=== PATIENT | female | born 1975 | race Two or more races ===

== ENCOUNTER 2019-05-29 23:13 | Inpatient (IN) | payer MEDICAID, OTHER ==
[~2019-05-29] VITALS: Ht 167.6 cm; Wt 78.5 kg
[2019-05-29 23:18] VITALS: BP 136/86
[2019-05-29] MEDS ORDERED: NACL 0.9% 1,000 ML IV ONE (23:20)
[2019-05-29 23:42] LABS: BASOPHILS # (AUTO) 0.1 K/uL (0.00-0.22); BASOPHILS % (AUTO) 0.6 % (0.0-2.0); EOSINOPHILS # (AUTO) 0.1 K/uL (0-0.4); EOSINOPHILS % (AUTO) 0.7 % (0.0-4.0); HEMATOCRIT 42.1 % (36-48); HEMOGLOBIN 14.1 g/dL (12.0-16.0); LYMPHOCYTES % (AUTO) 26.7 % (20.5-51.1); MEAN CORPUSCULAR HEMOGLOBIN 32 pg (27-31); MEAN CORPUSCULAR HGB CONC 34 g/dL (33-37); MEAN CORPUSCULAR VOLUME 95.8 fL (80-94); MONOCYTES # (AUTO) 0.8 K/uL (0.8-1.0); MONOCYTES % (AUTO) 5.5 % (1.7-9.3); NEUTROPHILS % (AUTO) 66.5 % (42.2-75.2); PLATELET COUNT (AUTO) 373 K/uL (140-450); RED CELL DISTRIBUTION WIDTH 15.5 % (11.6-13.7)
[2019-05-29 23:48] LABS: BARBITURATE, URINE NEG. ng/ml (NEG <=200); BENZODIAZEPINE, URINE NEG. ng/mL (NEG <=200); CANNABINOID, URINE NEG. ng/mL (NEG <=50); COCAINE, URINE NEG. ng/mL (NEG <=300); OPIATE, URINE NEG. ng/mL (NEG <=2000); PHENCYCLIDINE SCREEN,URINE NEG. ng/mL (NEG <=25)
[2019-05-29 23:51] LABS: CARBON DIOXIDE 22.7 mmol/L (21-32); CHLORIDE 105 mmol/L (98-107); CREATININE 0.5 mg/dL (0.6-1.3); GFR ARICAN-AMERICAN 172 mL/min (>90); GLUCOSE 117 mg/dL (74-106); POTASSIUM 3.7 mmol/L (3.5-5.1); SODIUM SERUM 141 mmol/L (136-145); UREA NITROGEN, BLOOD 16 mg/dL (7-18)
[2019-05-29 23:57] LABS: ACETAMINOPHEN < 0.5 ug/ml (10-30); ALBUMIN 3.6 g/dL (3.4-5.0); ASPARTATE AMINOTRANSFERASE 33 U/L (15-37); SALICYLATE < 2.8 mg/dL (2.8-20.0); TOTAL BILIRUBIN 0.4 mg/dL (0.0-1.0)
[2019-05-30] MEDS ORDERED: LORazepam 2 MG/ML VIAL IVP ONE (00:15)
[2019-05-30] MEDS ORDERED: KETOROLAC 30 MG/ML VIAL IVP ONE (04:55)
[2019-05-30] MEDS ORDERED: ALUMINUM HYD/MAG/SIMETHICONE 30 ML UDC PO ONE (07:30)
[2019-05-30] MEDS ORDERED: LORazepam 1 MG TAB PO ONE (07:30)
[2019-05-30] MEDS ORDERED: HYDR-3293 PO (07:43)
[2019-05-30] MEDS ORDERED: HYDR25CA32 PO ×2 (07:43→10:24)
[2019-05-30] MEDS ORDERED: DULO30EC PO ×2 (07:43→10:24)
[2019-05-30] MEDS ORDERED: NACL 0.9% 1,000 ML IV SCH (08:34)
[2019-05-30] MEDS ORDERED: ONDANSETRON 4 MG/2 ML VIAL IM/IVP PRN (08:35)
[2019-05-30] MEDS ORDERED: HYDROcodone/APAP 5/325 MG 1 TAB TAB PO PRN (08:35)
[2019-05-30] MEDS ORDERED: hydrOXYzine PAMOATE 25 MG CAP PO PRN (10:25)
[2019-05-30] MEDS ORDERED: HYDROCHLOROTHIAZIDE 25 MG TAB PO SCH (11:15)
[2019-05-30] MEDS ORDERED: LORazepam 2 MG/ML VIAL IM/IVP PRN (11:30)
[2019-05-30] MEDS ORDERED: MULTIVITAMIN-12 10 ML, THIAMINE 100 MG, MAGNESIUM SULFATE 50% 2,000 MG, FOLIC ACID 1 MG... IV SCH ×5 (11:30)
[2019-05-30] MEDS: chlordiazePOXIDE 25 MG CAP PO SCH ×2 (12:25→16:54)
[2019-05-30 12:49] LABS: MAGNESIUM 1.5 mg/dL (1.8-2.4); THYROID STIMULATING HORMONE 1.15 uIU/mL (0.34-3.74)
[2019-05-30 12:50] VITALS: BP 150/94
[2019-05-30] MEDS ORDERED: LORazepam 1 MG TAB PO SCH (13:00)
[2019-05-30] MEDS ORDERED: MAG SULF 2000 MG/WATER PREMIX 50 ML IV SCH (14:00)
[2019-05-30] MEDS: LORazepam 1 MG TAB PO PRN (15:38)
[2019-05-30 16:50] VITALS: BP 140/79
[2019-05-30 18:06] LABS: APPEARANCE,URINE CLEAR (CLEAR); BILIRUBIN,URINE NEGATIVE (NEGATIVE); BLOOD, URINE NEGATIVE (NEGATIVE); COLOR,URINE OTHER (YELLOW); LEUKOCYTE ESTERASE ,URINE NEGATIVE (NEGATIVE); NITRITE, URINE NEGATIVE (NEGATIVE); UGLUCOSE NEGATIVE (NEGATIVE)
[2019-05-30 20:20] VITALS: BP 142/90
[2019-05-30] MEDS ORDERED: MAG SULF 2000 MG/WATER PREMIX 50 ML IV ONE (21:10)
[2019-05-30] MEDS: MORPHINE SULFATE 2 MG/ML SYR IVP PRN (21:27)
[2019-05-30] MEDS: DULoxetine 30 MG CAPDR PO SCH (21:27)
[2019-05-30] MEDS: NACL 0.9% 1,000 ML IV SCH (23:04)
[2019-05-31] MEDS: LORazepam 1 MG TAB PO PRN ×2 (00:56→11:47)
[2019-05-31 04:30] VITALS: BP 128/87
[2019-05-31 07:02] LABS: CHOL/HDL RATIO 3.7 (1-4.5)
[2019-05-31 08:19] LABS: T4 (THYROXINE) 5.5 ug/dL (4.5-12.0)
[2019-05-31] MEDS: chlordiazePOXIDE 25 MG CAP PO SCH ×2 (08:23→14:04)
[2019-05-31] MEDS: DULoxetine 30 MG CAPDR PO SCH (08:24)
[2019-05-31] MEDS: MORPHINE SULFATE 2 MG/ML SYR IVP PRN ×2 (08:29→14:09)
[2019-05-31] MEDS ORDERED: NON-FORMULARY ITEM (Losartan/Hydrochlorothiazide (Losartan-Hctz 50-12.5 mg Tab) 1 TAB) PO SCH (09:00)
[2019-05-31] MEDS ORDERED: LOSARTAN 50 MG TAB PO SCH (09:00)
[2019-05-31] MEDS ORDERED: HYDROCHLOROTHIAZIDE 25 MG TAB PO SCH ×2 (09:00)
[2019-05-31] MEDS ORDERED: FOLIC ACID 1 MG TAB PO SCH (09:00)
[2019-05-31] MEDS ORDERED: THIAMINE 100 MG TAB PO SCH (09:00)
[2019-05-31] MEDS ORDERED: MULTIVITAMIN 1 TAB PO SCH (09:00)
[2019-05-31 10:07] LABS: BASOPHILS % (AUTO) 0.3 % (0.0-2.0); EOSINOPHILS # (AUTO) 0.2 K/uL (0-0.4); EOSINOPHILS % (AUTO) 3.1 % (0.0-4.0); HEMATOCRIT 38.2 % (36-48); HEMOGLOBIN 12.7 g/dL (12.0-16.0); LYMPHOCYTES # (AUTO) 2.7 K/uL (2.5-16.5); MEAN CORPUSCULAR HEMOGLOBIN 32 pg (27-31); MEAN CORPUSCULAR HGB CONC 33 g/dL (33-37); MEAN CORPUSCULAR VOLUME 97.2 fL (80-94); MONOCYTES # (AUTO) 0.7 K/uL (0.8-1.0); MONOCYTES % (AUTO) 9.5 % (1.7-9.3); NEUTROPHILS # (AUTO) 3.5 K/uL (1.8-7.7); NEUTROPHILS % (AUTO) 49.1 % (42.2-75.2); PLATELET COUNT (AUTO) 272 K/uL (140-450); RED BLOOD CELL COUNT(AUTO) 3.93 MIL/uL (4.20-5.40); RED CELL DISTRIBUTION WIDTH 15.1 % (11.6-13.7)
[2019-05-31 10:24] LABS: ALBUMIN 3.3 g/dL (3.4-5.0); ANION GAP 14.5 (8-16); CARBON DIOXIDE 25.4 mmol/L (21-32); CREATININE 0.5 mg/dL (0.6-1.3); MAGNESIUM 1.9 mg/dL (1.8-2.4); PHOSPHORUS 3.5 mg/dL (2.5-4.9); POTASSIUM 3.9 mmol/L (3.5-5.1); TOTAL BILIRUBIN 0.8 mg/dL (0.0-1.0)
[2019-05-31] MEDS ORDERED: busPIRone 5 MG TAB PO SCH (13:00)
[2019-05-31] MEDS: NACL 0.9% 1,000 ML IV SCH (14:40)
[2019-05-31] MEDS ORDERED: BUS5 PO (15:48)
[2019-05-31 16:44] VITALS: BP 128/87
== END 2019-05-31 17:30 | DRG 425 ==
LOC: MED 23:13 → MTU 05-30 08:40
PROVIDERS: ADMIT General Practice; ATTEND General Practice
DX: E83.42 Hypomagnesemia (principal); R45.851 Suicidal ideations; F10.129 Alcohol abuse with intoxication, unspecified; D72.829 Elevated white blood cell count, unspecified; F32.9 Major depressive disorder, single episode, unspecified; Y90.7 Blood alcohol level of 200-239 mg/100 ml; F41.9 Anxiety disorder, unspecified; I10 Essential (primary) hypertension; E83.51 Hypocalcemia; Z59.0 Homelessness
CPT/HCPCS: 36415; 71045; 80053; 80305; 81003; 82150; 83036; 83690; 83735; 84100; 84436; 84443; 85025; 85610; 85730; 87070; 87081; 93005; 96361; 96374; 96375; 99285; A9153; G0480; G0482; J1885; J2060; J2270; J3411; J3475; J3490; J7030; Q0092

== ENCOUNTER 2019-07-15 20:02 | Inpatient (IN) | payer MEDICAID ==
[~2019-07-15] VITALS: Ht 167.6 cm; Wt 79.4 kg
[~2019-07-15 20:02] MED LIST: BUS5 PO; DULO30EC PO; HYDR-3293 PO
[2019-07-15] MEDS ORDERED: KETOROLAC 60 MG/2 ML VIAL IM ONE (21:22)
[2019-07-15] MEDS ORDERED: OLANZapine 5 MG ODT ONE (22:05)
[2019-07-15] MEDS ORDERED: LORazepam 2 MG/ML VIAL ONE (22:06)
[2019-07-16] MEDS ORDERED: FOLIC ACID 1 MG TAB ONE (02:06)
[2019-07-16] MEDS ORDERED: THIAMINE 200 MG/2 ML VIAL ONE (02:08)
[2019-07-16] MEDS ORDERED: MULTIVITAMIN-12 10 ML VIAL IV ONE (02:21)
[2019-07-16] MEDS ORDERED: KCL 20 MEQ/WATER INJ PREMIX 200 ML IV ONE (02:23)
[2019-07-16] MEDS ORDERED: MAGNESIUM OXIDE 400 MG TAB ONE (11:42)
[2019-07-16] MEDS ORDERED: LORazepam 2 MG/ML VIAL ONE ×2 (14:52→22:11)
[2019-07-16] MEDS ORDERED: FAMOTIDINE 20 MG TAB ONE ×2 (14:53→22:49)
[2019-07-16] MEDS ORDERED: OLANZapine 2.5 MG TAB ONE (22:50)
[2019-07-16] MEDS ORDERED: LACTULOSE 20 GM/30 ML UDC ONE (22:51)
[2019-07-16] MEDS ORDERED: HYDROcodone/APAP 5/325 MG 1 TAB TAB ONE (22:51)
[2019-07-17] MEDS: NACL 0.9% 1,000 ML IV SCH ×2 (05:30→10:00)
[2019-07-17] MEDS ORDERED: HYDROcodone/APAP 5/325 MG 1 TAB TAB ONE (06:58)
--- NOTE | 2019-07-17 07:30 | NUR ---
Received report from night baker nurse. Pt is in bed in stable condition. Call light in reach.
[2019-07-17 08:09] LABS: BASOPHILS % (AUTO) 0.7 % (0.0-2.0); EOSINOPHILS # (AUTO) 0.2 K/uL (0-0.4); EOSINOPHILS % (AUTO) 2.8 % (0.0-4.0); HEMATOCRIT 32.8 % (36-48); LYMPHOCYTES # (AUTO) 2.5 K/uL (2.5-16.5); LYMPHOCYTES % (AUTO) 40.8 % (20.5-51.1); MEAN CORPUSCULAR HEMOGLOBIN 32 pg (27-31); MEAN CORPUSCULAR HGB CONC 34 g/dL (33-37); MEAN CORPUSCULAR VOLUME 93.3 fL (80-94); MONOCYTES # (AUTO) 0.5 K/uL (0.8-1.0); MONOCYTES % (AUTO) 7.4 % (1.7-9.3); NEUTROPHILS % (AUTO) 48.3 % (42.2-75.2); PLATELET COUNT (AUTO) 282 K/uL (140-450); RED BLOOD CELL COUNT(AUTO) 3.51 MIL/uL (4.20-5.40); RED CELL DISTRIBUTION WIDTH 14.9 % (11.6-13.7); WHITE BLOOD COUNT (AUTO) 6.2 K/uL (4.8-10.8)
[2019-07-17 08:55] LABS: ALBUMIN 2.8 g/dL (3.4-5.0); ANION GAP 12.9 (8-16); CARBON DIOXIDE 23.6 mmol/L (21-32); CREATININE 0.6 mg/dL (0.6-1.3); MAGNESIUM 1.7 mg/dL (1.8-2.4); PHOSPHORUS 2.6 mg/dL (2.5-4.9); POTASSIUM 3.5 mmol/L (3.5-5.1); TOTAL BILIRUBIN 0.5 mg/dL (0.0-1.0)
[2019-07-17] MEDS ORDERED: busPIRone 5 MG TAB PO SCH ×2 (10:00→21:00)
[2019-07-17] MEDS ORDERED: HYDROCHLOROTHIAZIDE 25 MG TAB PO SCH (10:06)
[2019-07-17] MEDS ORDERED: LOSARTAN 50 MG TAB PO SCH (10:07)
--- NOTE | 2019-07-17 10:24 | NUR ---
Pt's medication hydrochlorothiazide 12.5 mg and Losartan Potassium 50 mg was given. Unable to scan with scanner and manual entry is not working.
--- NOTE | 2019-07-17 13:00 | NUR ---
Pt said that she wants to kill herself. Pt was crying. Pt was resting in bed at this time. Sitter by bedside.
[2019-07-17] MEDS: HYDROcodone/APAP 5/325 MG 1 TAB TAB PO PRN (14:22)
[2019-07-17] MEDS ORDERED: LOPERAMIDE 2 MG CAP PO SCH (14:45)
--- NOTE | 2019-07-17 15:00 | NUR ---
Pt is resting in bed in stable condition. Call light in reach.
[2019-07-17] MEDS: busPIRone 5 MG TAB PO SCH ×2 (15:04→16:28)
[2019-07-17 16:00] VITALS: BP 130/87
[2019-07-17 17:07] LABS: APPEARANCE,URINE CLEAR (CLEAR); BILIRUBIN,URINE NEGATIVE (NEGATIVE); BLOOD, URINE NEGATIVE (NEGATIVE); COLOR,URINE YELLOW (YELLOW); LEUKOCYTE ESTERASE ,URINE NEGATIVE (NEGATIVE); NITRITE, URINE NEGATIVE (NEGATIVE); UGLUCOSE NEGATIVE (NEGATIVE)
[2019-07-17 17:08] LABS: ANION GAP 16.2 (8-16); CARBON DIOXIDE 25.1 mmol/L (21-32); CREATININE 0.6 mg/dL (0.6-1.3); POTASSIUM 3.3 mmol/L (3.5-5.1)
[2019-07-17 17:09] LABS: ALBUMIN 4.4 g/dL (3.4-5.0); TOTAL BILIRUBIN 0.3 mg/dL (0.0-1.0)
[2019-07-17 17:10] LABS: BARBITURATE, URINE NEGATIVE ng/ml (NEG <=200); BENZODIAZEPINE, URINE POSITIVE ng/mL (NEG <=200); COCAINE, URINE NEGATIVE ng/mL (NEG <=300)
[2019-07-17 17:11] LABS: CANNABINOID, URINE POSITIVE ng/mL (NEG <=50); OPIATE, URINE NEGATIVE ng/mL (NEG <=2000); PHENCYCLIDINE SCREEN,URINE NEGATIVE ng/mL (NEG <=25)
--- NOTE | 2019-07-17 17:30 | NUR ---
Pt is resting in bed in stable condition. Call light in reach.
--- NOTE | 2019-07-17 19:30 | NUR ---
Shift report given to night nurse.Pt is resting in bed in stable condition. Call light in reach.
--- NOTE | 2019-07-17 19:31 | NUR ---
RECEIVED PT IN STABLE CONDITION FROM AM NURSE, MED SURG PT. ON 5150 HOLD. 1:1 SITTER IN ATTENDANCE. AMBULATORY. WITH IV FLUIDS JUST RESTARTED ON A NEW IV ACCESS LT AC g20. CLEAR AND PATENT. NO C/O ANY DISCOMFORT NOR PAIN NOTED AT THIS TIME. BED ON LOW POSITION. WILL CONTINUE TO MONITOR.
[2019-07-17] MEDS: LACTULOSE 20 GM/30 ML UDC PO SCH (20:43)
[2019-07-17] MEDS: DULoxetine 30 MG CAPDR PO SCH (20:44)
[2019-07-17] MEDS: FAMOTIDINE 20 MG TAB PO SCH (20:45)
[2019-07-17] MEDS: OLANZapine 5 MG TAB PO SCH (20:45)
[2019-07-17 21:21] LABS: PHOSPHORUS 3.1 mg/dL (2.5-4.9)
--- NOTE | 2019-07-17 21:30 | NUR ---
PT AMBUTATORY. B HAS BEEN TO BATHROOM. NO /CO ANY PAIN NOTED.
--- NOTE | 2019-07-17 23:00 | NUR ---
ASLEEP. NO S/S OF ANY DISCOMFORT NOTED.
[2019-07-18 00:16] VITALS: BP 122/80
--- NOTE | 2019-07-18 00:30 | NUR ---
ENDORSED PT TO STEVEN VELÁZQUEZ CHARGE FOR CONTINUITY OF CARE. PT IN STABLE CONDITION.WITH 1;1 SITTER FOR 5150 /SI .
--- NOTE | 2019-07-18 00:40 | NUR ---
RECEIVED REPORT FROM BILLY HARRIS.PT CONDITION IS STABLE.
[2019-07-18] MEDS: HYDROcodone/APAP 5/325 MG 1 TAB TAB PO PRN ×2 (05:21→20:15)
[2019-07-18] MEDS ORDERED: LORazepam 1 MG TAB PO PRN ×3 (05:30→07:25)
[2019-07-18 07:50] LABS: BASOPHILS # (AUTO) 0.4 K/uL (0.00-0.22); BASOPHILS % (AUTO) 4.6 % (0.0-2.0); EOSINOPHILS # (AUTO) 0.3 K/uL (0-0.4); EOSINOPHILS % (AUTO) 4.2 % (0.0-4.0); HEMATOCRIT 37.1 % (36-48); HEMOGLOBIN 12.2 g/dL (12.0-16.0); LYMPHOCYTES # (AUTO) 2.3 K/uL (2.5-16.5); MEAN CORPUSCULAR HEMOGLOBIN 31 pg (27-31); MEAN CORPUSCULAR HGB CONC 33 g/dL (33-37); MEAN CORPUSCULAR VOLUME 93.5 fL (80-94); MONOCYTES # (AUTO) 0.6 K/uL (0.8-1.0); NEUTROPHILS # (AUTO) 4.5 K/uL (1.8-7.7); NEUTROPHILS % (AUTO) 56.2 % (42.2-75.2); PLATELET COUNT (AUTO) 360 K/uL (140-450); RED BLOOD CELL COUNT(AUTO) 3.97 MIL/uL (4.20-5.40); RED CELL DISTRIBUTION WIDTH 15.3 % (11.6-13.7)
--- NOTE | 2019-07-18 07:52 | NUR ---
HAD C/O GENERALIZED PAIN.NORCO PO GIVEN EARLIER.PT ASKED FOR ATIVAN EXPLAINED FOR HER THAT HAS NO ORDER.SHE SAID SHE REALLY NEED IT.PROMISE HER TO TALK W/RESIDENT BUT I WILL NOT GIVE IT W/NORCO TOGETHER MAY BE AFTER 2 HRS.SHE ACCEPTED.ASKED RESIDENT HE ORDERED. BUT PT SLEPT AND DIDN'T ASK FOR ATIVAN.
--- NOTE | 2019-07-18 07:56 | NUR ---
REPORT GIVEN TO AM RN IN STABLE CONDITION.
--- NOTE | 2019-07-18 07:59 | NUR ---
RECEIVED PT FROM MANAGER SQL CHARGE NURSEMARIELY, PT IS SLEEPING ON THE BED WITH, RESPIRATION IS EVEN, 1:1 SITTER ON THE BEDSIDE, ROOM CHECKED FOR ANY HAZARDOUS OBJECTS, PT HAS AN IV LINE ON THE LEFT AC G. 20 WITH NS INFUSING AT 100ML/HR, NO SIGN OF DISTRESS NOTED AND WILL MONITOR PT.
[2019-07-18 08:00] VITALS: BP 136/91
[2019-07-18 08:11] LABS: ANION GAP 15.8 (8-16); CARBON DIOXIDE 22.9 mmol/L (21-32); POTASSIUM 3.7 mmol/L (3.5-5.1)
[2019-07-18 08:17] LABS: MAGNESIUM 1.8 mg/dL (1.8-2.4); PHOSPHORUS 3.4 mg/dL (2.5-4.9)
[2019-07-18 08:31] LABS: CREATININE 0.6 mg/dL (0.6-1.3)
[2019-07-18] MEDS: NACL 0.9% 1,000 ML IV SCH ×2 (08:44→16:25)
[2019-07-18] MEDS: LACTULOSE 20 GM/30 ML UDC PO SCH ×2 (09:13→20:14)
[2019-07-18] MEDS: LOSARTAN 50 MG TAB PO SCH (09:14)
[2019-07-18] MEDS: chlordiazePOXIDE 25 MG CAP PO SCH ×3 (09:15→17:42)
[2019-07-18] MEDS: DULoxetine 30 MG CAPDR PO SCH ×2 (09:15→20:15)
[2019-07-18] MEDS: FAMOTIDINE 20 MG TAB PO SCH ×2 (09:15→20:15)
--- NOTE | 2019-07-18 09:15 | NUR ---
PT IS AWAKE AND SEATED ON THE BED, 1; SITTER ON THE BEDSIDE, BP IS 136/91, PULSE IS 103, ORAL MEDICATIONS WERE GIVEN AND TOLERATED IT, WILL MONITOR PT.
[2019-07-18] MEDS: HYDROCHLOROTHIAZIDE 25 MG TAB PO SCH (09:16)
--- NOTE | 2019-07-18 11:40 | NUR ---
PT IS EATING HER LUNCH, DAUGHTER AND 1:1 SITTER ON THE BEDSIDE.
[2019-07-18] MEDS: LORazepam 1 MG TAB PO SCH ×2 (13:00→20:16)
--- NOTE | 2019-07-18 13:00 | NUR ---
PT WAS GIVEN SCHEDULED ORAL MEDICATIONS NOW, BP KIS 133/86, PULSE IS 97, O2 SATURATION IS 98%, DAUGHTER AND 1: SITTER ON THE BEDSIDE, WILL MONITOR PT.
[2019-07-18 16:00] VITALS: BP 132/98
--- NOTE | 2019-07-18 17:44 | NUR ---
PATIENT SITTING IN BED COMFORTABLY. NO DISTRESS NOTED. SCHEDULED MEDICATIONS DUE GIVEN. WILL CONTINUE TO MONITOR.
[2019-07-18 19:07] LABS: ANION GAP 13.7 (8-16); CREATININE 0.7 mg/dL (0.6-1.3); POTASSIUM 3.7 mmol/L (3.5-5.1); TRIGLYCERIDES 274 mg/dL (30-150)
[2019-07-18 19:08] LABS: AMYLASE 71 U/L (25-115); CHOL/HDL RATIO 2.3 (1-4.5); HDL CHOLESTEROL 55 mg/dL (40-60); LDL (CALC) 18 mg/dL (60-100); LIPASE 143 U/L (73-393); THYROID STIMULATING HORMONE 2.48 uIU/mL (0.34-3.74)
--- NOTE | 2019-07-18 19:35 | NUR ---
ENDORSED PT TO POOLROOM/POOLHALL MANAGER NURSE FOR CONTINUITY OF CARE.
--- NOTE | 2019-07-18 19:36 | NUR ---
RECD. AMBULATING FROM THE BR. AWAKE, A/OX4. RESPIRATION EVEN AND UNLABORED. IV OF NS AT 100 ML/HR INFUSING, LEFT AC G 20. WHEN INQUIRED IF SHE HAS THOUGHTS OF HURTING SELF STATED NO. PLAN OF CARE FOR THE SHIFT DISCUSSED. VERBALIZED UNDERSTANDING. 1:1 SITTER MONITORING PATIENT NEAR DOOR. DENIES PAIN 0. Addendum: 07/18/19 at 2031 by Cassie Pulido LVN CORRECTION: THIS CHARTING IS NOT FOR THIS PATIENT. Addendum: 07/18/19 at 2033 by Cassie Pulido LVN CORRECTION: THIS CHARTING IS FOR THIS PATIENT. Addendum: 07/18/19 at 2034 by Cassie Pulido LVN CORRECTION: MADE ADDENDUM IN ERROR. THIS CHARTING IS FOR THIS PATIENT.
[2019-07-18] MEDS: OLANZapine 5 MG TAB PO SCH (21:00)
--- NOTE | 2019-07-18 21:00 | NUR ---
Patient's Plan of Care was discussed and reviewed with PUSH BUTTON SWITCH ASSEMBLER: ROBINA ACEVEDO
--- NOTE | 2019-07-18 21:35 | NUR ---
INFORMED DR. HAIR PATIENT IS CRAVING TO SMOKE, WILL ORDER NICOTINE PATCH.
[2019-07-18] MEDS ORDERED: NICOTINE TRANSD SYS 14 MG/24 HR PATCH TD SCH (23:00)
--- NOTE | 2019-07-19 | NUR ---
UNABLE TO SCAN MEDICATION, [id number] SAYS MISSING OE ORDER BUTTON, CALLED PHARMACY, WILL PUT IT AGAIN. STILL UNABLE TO SCAN, NICOTINE PATCH PUT ON LEFT UPPER ARM OF PATIENT.
[2019-07-19 00:46] VITALS: BP 129/83
[2019-07-19] MEDS ORDERED: NICOTINE TRANSD SYS 14 MG/24 HR PATCH TD SCH ×2 (01:00→09:00)
[2019-07-19] MEDS: NACL 0.9% 1,000 ML IV SCH ×2 (02:00→12:00)
--- NOTE | 2019-07-19 04:00 | NUR ---
SLEEPING COMFORTABLY IN BED.
[2019-07-19] MEDS: LORazepam 1 MG TAB PO SCH ×2 (05:00→13:41)
--- NOTE | 2019-07-19 05:19 | NUR ---
At this time there are no vacancy at the following facilities [facility]- Naty Quan [facility]- [facility] Cheung [place]- Robbie will endorsed top AM shift to continue to look for beds, Trung charge nurse made aware.
--- NOTE | 2019-07-19 07:25 | NUR ---
CONDITION REMAIN STABLE. SAFETY MAINTAINED DURING SHIFT. ENDORSED TO AM SHIFT NURSE FOR CONTINUITY OF CARE.
[2019-07-19 07:26] LABS: ANION GAP 13.9 (8-16); CREATININE 0.5 mg/dL (0.6-1.3); POTASSIUM 3.9 mmol/L (3.5-5.1)
--- NOTE | 2019-07-19 07:27 | NUR ---
RECEIVED BEDSIDE REPORT FROM CURING PRESS MAINTAINER NURSE FOR CONTINUITY OF CARE. PATIENT IS ASLEEP ON BED. AROUSABLE TO VOICE. FLACC 0. RESPIRATION EVEN AND UNLABORED ON RA. NO SIGNS OF DISTRESS NOTED. IV CLEAN AND INTACT, INFUSING PER MD ORDER. SKIN CLEAN AND DRY. SAFETY MEASURES IN PLACE. BED IN LOW POSITION AND1:1 SITTER BY BEDSIDE.
[2019-07-19 07:33] LABS: MAGNESIUM 1.8 mg/dL (1.8-2.4); PHOSPHORUS 4.1 mg/dL (2.5-4.9)
[2019-07-19 07:59] LABS: BASOPHILS # (AUTO) 0.1 K/uL (0.00-0.22); BASOPHILS % (AUTO) 0.9 % (0.0-2.0); EOSINOPHILS # (AUTO) 0.2 K/uL (0-0.4); HEMATOCRIT 33.9 % (36-48); HEMOGLOBIN 11.2 g/dL (12.0-16.0); LYMPHOCYTES # (AUTO) 2.1 K/uL (2.5-16.5); LYMPHOCYTES % (AUTO) 32.4 % (20.5-51.1); MEAN CORPUSCULAR HEMOGLOBIN 31 pg (27-31); MEAN CORPUSCULAR HGB CONC 33 g/dL (33-37); MONOCYTES # (AUTO) 0.5 K/uL (0.8-1.0); MONOCYTES % (AUTO) 7.7 % (1.7-9.3); NEUTROPHILS # (AUTO) 3.6 K/uL (1.8-7.7); PLATELET COUNT (AUTO) 292 K/uL (140-450); RED BLOOD CELL COUNT(AUTO) 3.61 MIL/uL (4.20-5.40); RED CELL DISTRIBUTION WIDTH 15.2 % (11.6-13.7); WHITE BLOOD COUNT (AUTO) 6.5 K/uL (4.8-10.8)
[2019-07-19 08:00] VITALS: BP 120/80
--- NOTE | 2019-07-19 08:32 | NUR ---
Received report from PM shift. Will follow up with surrounding Psych facilities to locate appropriate placement.
[2019-07-19] MEDS: FAMOTIDINE 20 MG TAB PO SCH (09:16)
[2019-07-19] MEDS: LACTULOSE 20 GM/30 ML UDC PO SCH (09:16)
[2019-07-19] MEDS: DULoxetine 30 MG CAPDR PO SCH (09:16)
[2019-07-19] MEDS: HYDROCHLOROTHIAZIDE 25 MG TAB PO SCH (09:16)
[2019-07-19] MEDS: LOSARTAN 50 MG TAB PO SCH (09:17)
[2019-07-19] MEDS: chlordiazePOXIDE 25 MG CAP PO SCH ×3 (09:17→17:43)
--- NOTE | 2019-07-19 09:20 | NUR ---
ADMINISTERED MEDS PER MD ORDER, MEDS ED PROVIDED TO PATIENT AND PATIENT VERBALIZED UNDERSTANDING. PATIENT IS AAOX4. PATIENT DENIED HEARING VOICE, HALLUCINATION, AND ANY SUICIDAL IDEATION. NO SIGNS OF DISTRESS NOTED. PATIENT IS RESTING ON BED AT THIS TIME. NO SIGNS OF DISTRESS NOTED. SAFETY MEASURES IN PLACE. BED IN LOW POSITION AND 1:1 SITTER BY BEDSIDE.
--- NOTE | 2019-07-19 09:43 | NUR ---
DC PLANNING: RECEIVED A CALL FROM ANTONI CONCRETE SPREADER AT [facility] ,PT IS ACCEPTED AND CAN GO TO UN[address] 220-1 # TO GIVE REPORT [phone] Annie MADDOX CALLED [facility] [phone] SPOKE WITH WHIT MANZO FOR AUTH FOR TRANSPORT . PER WHIT WILL CALL BACK FOR KAMILLA MANZO TO FOLLOW. Addendum: 07/19/19 at 1013 by Gilda Scott CM DC PLANNING: STILL WAITING FOR AUTHORIZATION , PLACED THE TRANSPORT WILL CALL WITH [facility] MAN[facility] TO FOLLOW Addendum: 07/19/19 at 1628 by Gilda Scott CM DC PLANNING UN ABLE TO GET AUTHORIZATION FROM [facility] STILL WAITING FROM [facility] (WHIT) PER MAGO (ORDER ADMINISTRATOR) ARRANGED TRANSPORT WITH [facility] ,INVESTMENT BANKING MANAGER TIME WITH IN ONE HR . NOTIFIED EDIN HARRIS .
[2019-07-19] MEDS ORDERED: OLAN5TAB30 PO (10:12)
[2019-07-19] MEDS ORDERED: LIB5 PO (10:12)
[2019-07-19] MEDS ORDERED: NICO14TD30 TD (10:12)
--- NOTE | 2019-07-19 10:15 | NUR ---
PATIENT REFUSED TO BE TRANSFER AND INSISTED TO LEAVE THE UNIT. EXPLAINED TO PT THAT SHE IS STILL ON HOLD AND RENEWED THE HOLD ON 07/18/19. PAPER CUTTING MACHINE OPERATOR SPOKE TO PATIENT AND PATIENT AGREED TO BE TRANSFER.
--- NOTE | 2019-07-19 10:26 | NUR ---
NOTIFIED PT'S SMART ERIKA THAT PATIENT IS GOING TO TRANSFER TO PSY FACILITY. PROVIDED THE ADDRESS, NAME AND PHONE # FOR THE FACILITY PT IS GOING TO TRANSFER. ERIKA WAS AWARE AND ACKNOWLEDGED THE TRANSFER.
--- NOTE | 2019-07-19 10:31 | NUR ---
CALLED [facility] [phone] AND FULL REPORT GAVE TO KANG VERNON, ANSWERED ALL KANG Tineo'S QUESTIONS AND PROVIDED A CALL BACK # FOR FURTHER QUESTIONS.
--- NOTE | 2019-07-19 11:40 | NUR ---
PATIENT IS RESTING ON BED AT THIS TIME. NO SIGNS OF DISTRESS NOTE. SAFETY MEASURES IN PLACE. AWAITING FOR TRANSPORTATION TO ARRIVE TO TRANSFER.
--- NOTE | 2019-07-19 13:41 | NUR ---
ADMINISTERED SCHEDULED MEDS PER MD ORDER, PATIENT IS SITTING UP ON BED. DENIED SUICIDAL IDEATION AND HEARING VOICES. NO SIGNS OF DISTRESS NOTE. SAFETY MEASURES IN PLACE/
--- NOTE | 2019-07-19 14:07 | NUR ---
Called JOVANY Ponce at [facility]. She told me that [facility] is delegated for this stay. I gave her a verbal update. Requested remote team to fax over the clinicals at [phone].
--- NOTE | 2019-07-19 15:15 | NUR ---
PT PULLED OUT HER IV AND SAYING "I DONT NEED IT. I AM TRANSFER SOON." ASSESSED CANNULA INTACT AND NO BLEEDING AT IV SITE. ED PROVIDED TO PATIENT AND PT REFUSED IV ACCESS. PATIENT IS SITTING UP ON BED. DENIED SUICIDAL IDEATION AND HEARING VOICES. NO SIGNS OF DISTRESS NOTE. SAFETY MEASURES IN PLACE AND 1:1 SITTER BY BEDSIDE.
[2019-07-19 16:00] VITALS: BP 123/54
--- NOTE | 2019-07-19 17:15 | NUR ---
Public Service Representative Note: Late entry for 07/18/19: I faxed referral to [facility]. I called and spoke with Jose Antonio from [facility], I was able to confirmed he received referral.
--- NOTE | 2019-07-19 17:43 | NUR ---
ADMINISTERED SCHEDULED MEDS PER MD ORDER, PATIENT IS SITTING UP ON BED. DENIED SUICIDAL IDEATION AND HEARING VOICES. NO SIGNS OF DISTRESS NOTE. SAFETY MEASURES IN PLACE AND 1:1 SITTER BY BEDSIDE.
--- NOTE | 2019-07-19 17:54 | NUR ---
CALLED [facility] [phone] TO FOLLOW UP SCREEN PRINTING EQUIPMENT SETTER. SPOKE WITH [employer]. PER [employer], THEY NEED THE AUTHORIZATION # FOR SCREEN PRINTING EQUIPMENT SETTER. CHECKED NOTED FROM CM, AND NO # FOUND. NOTIFIED AGRICULTURAL ENGINEER AND WILL WORK ON IT. INFORMED [employer] THAT WE WILL CALL BACK TO FOLLOW UP.
--- NOTE | 2019-07-19 18:30 | NUR ---
PT IS EATING DINNER AT THIS TIME. NO SIGNS OF DISTRESS NOTED. SAFETY MEASURES IN PLACE.
--- NOTE | 2019-07-19 18:50 | NUR ---
DISCHARGE INSTRUCTION PROVIDED TO PT AT BEDSIDE. EDUCATED PATIENT ON SEEK MEDICAL HELP IN PSYCHIATRIC CRISIS, MEDICATIONS REGIMEN, SIDE EFFECTS, AND ALCOHOL CESSATION. PATIENT VERBALIZED OK. REMOVED ALL ARM BANDS. PATIENT CHANGED INTO HER OWN CLOTHES. PATIENT TOOK ALL HER BELONGINGS WITH HER. PT REFUSED VACCINES AND ED PROVIDED. PATIENT IS GOING TO TRANSFER AT THIS TIME. PATIENT IS IN STABLE CONDITION.
[2019-07-22 15:05] LABS: HEMATOCRIT 32.1 % (36-48); HEMOGLOBIN 10.6 g/dL (12.0-16.0); LYMPHOCYTES % (AUTO) 53.9 % (20.5-51.1); MEAN CORPUSCULAR HEMOGLOBIN 31 pg (27-31); MEAN CORPUSCULAR HGB CONC 33 g/dL (33-37); MEAN CORPUSCULAR VOLUME 93.3 fL (80-94); NEUTROPHILS % (AUTO) 35.6 % (42.2-75.2); PLATELET COUNT (AUTO) 298 K/uL (140-450); RED BLOOD CELL COUNT(AUTO) 3.44 MIL/uL (4.20-5.40); WHITE BLOOD COUNT (AUTO) 5.8 K/uL (4.8-10.8)
[2019-07-22 15:06] LABS: BASOPHILS % (AUTO) 0.7 % (0.0-2.0); EOSINOPHILS # (AUTO) 0.1 K/uL (0-0.4); EOSINOPHILS % (AUTO) 1.4 % (0.0-4.0); LYMPHOCYTES # (AUTO) 3.2 K/uL (2.5-16.5); MONOCYTES # (AUTO) 0.5 K/uL (0.8-1.0); MONOCYTES % (AUTO) 8.4 % (1.7-9.3); NEUTROPHILS # (AUTO) 2.1 K/uL (1.8-7.7)
== END 2019-07-19 18:50 | DRG 817 ==
LOC: MED 20:02 → MTU 23:44
PROVIDERS: ADMIT Family Medicine; ATTEND Family Medicine
DX: T42.4X2A Poisoning by benzodiazepines, intentional self-harm, initial encounter (principal); G92 Toxic encephalopathy; R45.851 Suicidal ideations; F19.10 Other psychoactive substance abuse, uncomplicated; F32.9 Major depressive disorder, single episode, unspecified; I10 Essential (primary) hypertension; F41.9 Anxiety disorder, unspecified; M54.30 Sciatica, unspecified side; E87.6 Hypokalemia; T50.905A Adverse effect of unspecified drugs, medicaments and biological substances, initial encounter; Y92.89 Other specified places as the place of occurrence of the external cause; T40.7X2A Poisoning by cannabis (derivatives), intentional self-harm, initial encounter
CPT/HCPCS: 36415; 71045; 73610; 73630; 76705; 80048; 80053; 80305; 81003; 82140; 82150; 83690; 83735; 84100; 84443; 84484; 84703; 85025; 85610; 85730; 87081; 96372; 99285; A9153; G0482; J1885; J2060; J3411; J3480; Q0092

== ENCOUNTER 2020-02-08 15:43 | Emergency (ER) | payer MEDICAID ==
[~2020-02-08] VITALS: Ht 165.1 cm; Wt 79.4 kg
[~2020-02-08 15:43] MED LIST changes: +LIB5 PO; +NICO14TD30 TD; +OLAN5TAB30 PO
[2020-02-08 15:50] VITALS: BP 118/68
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
--- NOTE | 2020-02-08 17:08 | NUR ---
PT LEFT TO CT VIA WHEELCHAIR
--- NOTE | 2020-02-08 17:14 | NUR ---
PT RETURNED FROM CT
[2020-02-08] MEDS ORDERED: KETOROLAC 30 MG/ML VIAL IM ONE (17:40)
[2020-02-08 18:12] VITALS: BP 118/68
--- NOTE | 2020-02-08 18:13 | NUR ---
Patient discharged with v/s stable. Written and verbal after care instructions given and explained. Patient alert, oriented and verbalized understanding of instructions. Ambulatory with to car. All questions addressed prior to discharge. ID band removed. Patient advised to follow up with PMD. Rx of TYLENOL given. Patient educated on indication of medication including possible reaction and side effects. Opportunity to ask questions provided and answered.
== END 2020-02-08 18:13 | disposition home or self-care (01) ==
LOC: MED 15:43
DX: S02.2XXA Fracture of nasal bones, initial encounter for closed fracture (principal); S00.531A Contusion of lip, initial encounter; I10 Essential (primary) hypertension; J45.909 Unspecified asthma, uncomplicated; Z79.899 Other long term (current) drug therapy; Z98.890 Other specified postprocedural states; Z91.013 Allergy to seafood; Y04.2XXA Assault by strike against or bumped into by another person, initial encounter; Y93.89 Activity, other specified; Y92.89 Other specified places as the place of occurrence of the external cause; Y99.8 Other external cause status
CPT/HCPCS: 70486; 81025; 96372; 99284; J1885

== ENCOUNTER 2020-03-26 16:46 | Emergency (ER) | payer MEDICAID ==
[~2020-03-26] VITALS: Ht 160 cm; Wt 77.1 kg
--- NOTE | 2020-03-26 16:47 | NUR ---
Pt biba and placed in bed 7.
[2020-03-26 16:53] VITALS: BP 124/83
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
--- NOTE | 2020-03-26 16:55 | NUR ---
Rose Perez: [phone]
--- NOTE | 2020-03-26 16:56 | NUR ---
Dr. Vizcarra is evaluating the patient at bedside.
[2020-03-26] MEDS ORDERED: KETOROLAC 60 MG/2 ML VIAL IM ONE (17:00)
--- NOTE | 2020-03-26 17:20 | NUR ---
Pt provided with a sandwich and apple juice. Food okay from Dr. Vizcarra.
--- NOTE | 2020-03-26 17:43 | NUR ---
Pt taken to CT via w/c.
[2020-03-26 18:55] VITALS: BP 124/83
--- NOTE | 2020-03-26 18:55 | NUR ---
Patient discharged with v/s stable. Written and verbal after care instructions given and explained. Patient alert, oriented and verbalized understanding of instructions. Ambulatory with steady gait. All questions addressed prior to discharge. ID band removed. Patient advised to follow up with PMD. Rx of NAPROSYN given. Patient educated on indication of medication including possible reaction and side effects. Opportunity to ask questions provided and answered. BUS PASS PROVIDED
== END 2020-03-26 18:45 | disposition home or self-care (01) ==
LOC: MED 16:46
DX: S05.11XA Contusion of eyeball and orbital tissues, right eye, initial encounter (principal); J45.909 Unspecified asthma, uncomplicated; I10 Essential (primary) hypertension; Z79.899 Other long term (current) drug therapy; Z91.013 Allergy to seafood; Y04.0XXA Assault by unarmed brawl or fight, initial encounter; Y93.89 Activity, other specified; Y92.89 Other specified places as the place of occurrence of the external cause; Y99.8 Other external cause status
CPT/HCPCS: 70450; 70486; 81025; 96372; 99285; J1885

== ENCOUNTER 2020-05-17 16:53 | Emergency (ER) | payer MEDICAID ==
[~2020-05-17] VITALS: Ht 162.6 cm; Wt 95.7 kg
[~2020-05-17 16:53] MED LIST changes: +DIVA250E1 PO; -DULO30EC PO; +IBUP-2213 PO; -LIB5 PO; -NICO14TD30 TD; -OLAN5TAB30 PO; +RISP0.5T3 PO; +TRAZ-343 PO
[2020-05-17 16:58] VITALS: BP 108/74
--- NOTE | 2020-05-17 17:20 | NUR ---
45 YEAR OLD FEMALE COMPLAINS OF NAUSEA AND VOMITTING X 4 DAYS. PT AOX4, BREATHING EVEN AND UNLABORED, SKIN WARM AND DRY. BED IN LOWEST POSITION, LOCKED, BED RAIL UPX1. PMH - DENIES
[2020-05-17] MEDS: NACL 0.9% 1,000 ML IV ONE (18:04)
[2020-05-17] MEDS: ONDANSETRON 4 MG/2 ML VIAL IVP ONE (18:04)
--- NOTE | 2020-05-17 19:25 | NUR ---
PT OKAY TO DISCHARGE WITHOUT COMPLETION OF FLUIDS PER ERMD.
--- NOTE | 2020-05-17 19:31 | NUR ---
REPORT GIVEN TO JOSSELIN HARRIS, TRANSFER OF CARE AT THIS TIME
== END 2020-05-17 19:30 | disposition home or self-care (01) ==
LOC: MED 16:53
DX: R11.2 Nausea with vomiting, unspecified (principal); F10.239 Alcohol dependence with withdrawal, unspecified; F17.210 Nicotine dependence, cigarettes, uncomplicated; I10 Essential (primary) hypertension; Z91.013 Allergy to seafood; Z98.890 Other specified postprocedural states
CPT/HCPCS: 81002; 81025; 96361; 96374; 99283; J2405; J7030

== ENCOUNTER 2020-06-15 18:59 | Emergency (ER) | payer MEDICAID ==
[~2020-06-15] VITALS: Ht 167.6 cm; Wt 86.2 kg
[2020-06-15 19:01] VITALS: BP 118/87
[2020-06-15] MEDS ORDERED: KETOROLAC 30 MG/ML VIAL IM STA (19:12)
--- NOTE | 2020-06-15 19:22 | NUR ---
Lab at bedside.
--- NOTE | 2020-06-15 19:28 | NUR ---
45 Y/O F BIBA C/O ABD PAIN X 2 DAYS. DENIES N/V/D. PT STATES PAIN IN THE RLQ QUADRANT AND DESCRIBES IT TO BE A SHARP, ACHING PAIN, RATING AT 9/10. ABD SOFT, NON-TENDER. RR IGLESIA AND UNLABORED. LUNG SOUNDS CLEAR. PT ATTACHED TO SECTION CUTTER AND PULSE OXIMETRY. BED LOCKED AND IN LOWEST POSITION, SIDE RAIL UPX1. WILL CONTINUE TO MONITOR. MHX: SCHIZOPHRENIA, BIPOLAR. ALLERGIES: SHELLFISH DERIVED
[2020-06-15 19:37] LABS: BASOPHILS # (AUTO) 0.1 K/uL (0.00-0.22); BASOPHILS % (AUTO) 1.2 % (0.0-2.0); EOSINOPHILS # (AUTO) 0.1 K/uL (0-0.4); EOSINOPHILS % (AUTO) 1.3 % (0.0-4.0); HEMATOCRIT 40.2 % (36-48); HEMOGLOBIN 13.6 g/dL (12.0-16.0); LYMPHOCYTES # (AUTO) 3.2 K/uL (2.5-16.5); LYMPHOCYTES % (AUTO) 43.9 % (20.5-51.1); MEAN CORPUSCULAR HEMOGLOBIN 33 pg (27-31); MEAN CORPUSCULAR HGB CONC 34 g/dL (33-37); MEAN CORPUSCULAR VOLUME 96.1 fL (80-94); MONOCYTES # (AUTO) 0.5 K/uL (0.8-1.0); MONOCYTES % (AUTO) 6.9 % (1.7-9.3); NEUTROPHILS # (AUTO) 3.4 K/uL (1.8-7.7); NEUTROPHILS % (AUTO) 46.7 % (42.2-75.2); PLATELET COUNT (AUTO) 307 K/uL (140-450); RED BLOOD CELL COUNT(AUTO) 4.18 MIL/uL (4.20-5.40); RED CELL DISTRIBUTION WIDTH 14.4 % (11.6-13.7); WHITE BLOOD COUNT (AUTO) 7.3 K/uL (4.8-10.8)
[2020-06-15 19:56] LABS: ANION GAP 16.4 (8-16); CARBON DIOXIDE 25.7 mmol/L (21-32); CREATININE 0.6 mg/dL (0.6-1.3); POTASSIUM 3.1 mmol/L (3.5-5.1); TOTAL BILIRUBIN 0.3 mg/dL (0.0-1.0)
[2020-06-15 20:31] VITALS: BP 112/79
--- NOTE | 2020-06-15 20:32 | NUR ---
Patient discharged with v/s stable. Written and verbal after care instructions given and explained. Patient verbalized understanding. Ambulatory with steady gait. All questions addressed prior to discharge. Advised to follow up with PMD.
== END 2020-06-15 20:32 | disposition home or self-care (01) ==
LOC: MED 18:59
DX: R10.30 Lower abdominal pain, unspecified (principal); F10.10 Alcohol abuse, uncomplicated; K74.60 Unspecified cirrhosis of liver
CPT/HCPCS: 36415; 80053; 82150; 83690; 84703; 85025; 96372; 99283; J1885

== ENCOUNTER 2020-08-06 23:20 | Emergency (ER) | payer MEDICAID ==
[~2020-08-06] VITALS: Ht 167.6 cm; Wt 79.4 kg
[2020-08-06 23:25] VITALS: BP 130/75
--- NOTE | 2020-08-06 23:28 | NUR ---
TO LOBBY A/W BED AMBULATORY
--- NOTE | 2020-08-06 23:34 | NUR ---
PT TAKEN TO CHAIR
[2020-08-07 00:03] VITALS: BP 130/75
[2020-08-07] MEDS ORDERED: KETOROLAC 30 MG/ML VIAL IM ONE (00:25)
[2020-08-07] MEDS ORDERED: HYDROcodone/APAP 5/325 MG 1 TAB TAB PO ONE (00:25)
== END 2020-08-07 00:53 | disposition home or self-care (01) ==
LOC: MED 23:20
DX: M54.5 Low back pain (principal)
CPT/HCPCS: 96372; 99283; J1885

== ENCOUNTER 2020-09-30 15:02 | Emergency (ER) | payer MEDICAID ==
[~2020-09-30] VITALS: Ht 167.6 cm; Wt 90.7 kg
[2020-09-30 15:06] VITALS: BP 152/87
--- NOTE | 2020-09-30 15:16 | NUR ---
PT AMBULATED TO BED 11.
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
--- NOTE | 2020-09-30 15:49 | NUR ---
PT AMBULATED TO RESTROOM WITH STEADY GAIT FOR URINE SAMPLE.
--- NOTE | 2020-09-30 16:19 | NUR ---
DR PINEDA AT PT BEDSIDE FOR EVALUATION
[2020-09-30] MEDS ORDERED: ACETAMINOPHEN EXTRA STRENGTH 500 MG TAB PO ONE (16:30)
[2020-09-30] MEDS ORDERED: KETOROLAC 30 MG/ML VIAL IM ONE (16:30)
--- NOTE | 2020-09-30 17:13 | NUR ---
PATIENT ELOPED FROM FACILITY. DISCHARGE INSTRUCTIONS NOT GIVEN TO PATIENT. DR. PINEDA NOTIFIED.
[2020-09-30 17:14] VITALS: BP 152/87
== END 2020-09-30 17:13 | disposition home or self-care (01) ==
LOC: MED 15:02
DX: M54.41 Lumbago with sciatica, right side (principal); I10 Essential (primary) hypertension; Z91.013 Allergy to seafood; Z79.899 Other long term (current) drug therapy
CPT/HCPCS: 81002; 96372; 99283; J1885

== ENCOUNTER 2020-10-21 16:31 | Emergency (ER) | payer MEDICAID ==
[~2020-10-21] VITALS: Ht 167.6 cm; Wt 90.7 kg
--- NOTE | 2020-10-21 16:32 | NUR ---
PD AT BEDSIDE
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
[2020-10-21 16:33] VITALS: BP 136/61
--- NOTE | 2020-10-21 16:33 | NUR ---
BIBA TAKEN TO BED 9
[2020-10-21] MEDS ORDERED: LIDOCAINE/EPI 1% 1:100000 20 ML VIAL INJ ONE (16:40)
[2020-10-21] MEDS ORDERED: TETRACAINE HCL/PF 0.5% OPTH 4 ML BTL OP ONE (18:00)
[2020-10-21] MEDS ORDERED: FLUORESCEIN OPTH STRIP 1 MG OP ONE (18:00)
[2020-10-21] MEDS ORDERED: TETRACAINE HCL/PF 0.5% OPTH 4 ML BTL ONE (18:15)
[2020-10-21] MEDS ORDERED: FLUORESCEIN OPTH STRIP 1 MG ONE (18:17)
--- NOTE | 2020-10-21 18:24 | NUR ---
JOJO COVID SWAB OBTAINED AND GIVEN TO LAB
[2020-10-21 18:32] LABS: BASOPHILS # (AUTO) 0.1 K/uL (0.00-0.22); BASOPHILS % (AUTO) 0.8 % (0.0-2.0); EOSINOPHILS # (AUTO) 0.1 K/uL (0-0.4); EOSINOPHILS % (AUTO) 1.3 % (0.0-4.0); HEMATOCRIT 37.1 % (36-48); HEMOGLOBIN 12.5 g/dL (12.0-16.0); LYMPHOCYTES # (AUTO) 2.1 K/uL (2.5-16.5); LYMPHOCYTES % (AUTO) 24.1 % (20.5-51.1); MEAN CORPUSCULAR HEMOGLOBIN 31 pg (27-31); MEAN CORPUSCULAR HGB CONC 34 g/dL (33-37); MEAN CORPUSCULAR VOLUME 93.1 fL (80-94); MONOCYTES # (AUTO) 0.6 K/uL (0.8-1.0); MONOCYTES % (AUTO) 6.6 % (1.7-9.3); NEUTROPHILS % (AUTO) 67.2 % (42.2-75.2); PLATELET COUNT (AUTO) 254 K/uL (140-450); RED BLOOD CELL COUNT(AUTO) 3.99 MIL/uL (4.20-5.40); RED CELL DISTRIBUTION WIDTH 17.4 % (11.6-13.7); WHITE BLOOD COUNT (AUTO) 8.9 K/uL (4.8-10.8)
[2020-10-21 18:39] LABS: ANION GAP 13.7 (8-16); CARBON DIOXIDE 25.6 mmol/L (21-32); CREATININE 0.7 mg/dL (0.6-1.3); POTASSIUM 3.3 mmol/L (3.5-5.1)
--- NOTE | 2020-10-21 18:40 | NUR ---
Patient to be transferred to [facility]. Is being transferred due to HIGHER LEVEL OF CARE. Receiving facility has accepting physician and available space. ER physician has signed transfer form. Patient or responsible republican has agreed to transfer and signed form. Patient belongings inventoried and will be sent with patient. Copy of nursing notes, lab reports, EKG, Physicians Orders and X-rays to be sent with patient. Report called to LEONEL HARRIS at receiving facility. [facility] ambulance service has been called for transfer. [facility] present at bedside.
[2020-10-21 18:45] LABS: PROTHROMBIN TIME 9.8 secs (10.8-13.4)
--- NOTE | 2020-10-21 18:45 | NUR ---
PT TAKEN TO [facility] BY [facility] VIA PERRI
[2020-10-21 18:52] VITALS: BP 141/85
== END 2020-10-21 18:45 | disposition designated cancer center or children's hospital (05) ==
LOC: MED 16:31
DX: S02.32XA Fracture of orbital floor, left side, initial encounter for closed fracture (principal); S01.112A Laceration without foreign body of left eyelid and periocular area, initial encounter; I10 Essential (primary) hypertension; Z20.822 Contact with and (suspected) exposure to COVID-19; Z91.013 Allergy to seafood; Y04.0XXA Assault by unarmed brawl or fight, initial encounter; Y93.89 Activity, other specified; Y92.89 Other specified places as the place of occurrence of the external cause; Y99.8 Other external cause status
CPT/HCPCS: 36415; 70450; 70486; 71045; 80048; 85025; 85610; 85730; 86886; 86900; 86901; 87426; 90471; 90715; 99285; G0482; J2001

== ENCOUNTER 2021-01-18 14:56 | Emergency (ER) | payer MEDICAID ==
[~2021-01-18] VITALS: Ht 165.1 cm; Wt 81.6 kg
[2021-01-18 15:01] VITALS: BP 137/104
--- NOTE | 2021-01-18 15:15 | NUR ---
PT AMBULATED TO BED
--- NOTE | 2021-01-18 15:31 | NUR ---
45 Y/O FEMALE C/O COUGH, SORE THROAT, FEVER, HEADACHE ,GENERALIZED WEAKNESS , MUSCLE SPASM DIZZINESS X 3 DAYS. PT STATES 10/10 SHARP PAIN TO RT SIDE. WAS SEEN TODAY BY PCP AND GIVEN PROMETHAZINE, BUT HAS NOT TAKEN TODAY. PMH: HTN, BIPOLAR, 5150 DENIES SI. ALLERGIES: SHELLFISH
--- NOTE | 2021-01-18 15:59 | NUR ---
Dr. Sheriff is evaluating the patient at bedside.
[2021-01-18] MEDS ORDERED: KETOROLAC 30 MG/ML VIAL IM ONE (16:05)
--- NOTE | 2021-01-18 16:29 | NUR ---
NOVEL SWAB COLLECTED AND SENT TO LAB, HANDED TO JUDY RAMÍREZ
--- NOTE | 2021-01-18 16:54 | NUR ---
XRAY AT BEDSIDE
[2021-01-18 18:00] VITALS: BP 137/104
--- NOTE | 2021-01-18 18:00 | NUR ---
Patient discharged with v/s stable. Written and verbal after care instructions given and explained. Patient alert, oriented and verbalized understanding of instructions. Ambulatory with steady gait. All questions addressed prior to discharge. ID band removed. Patient advised to follow up with PMD. Opportunity to ask questions provided and answered.
== END 2021-01-18 18:00 | disposition home or self-care (01) ==
LOC: MED 14:56
DX: J02.9 Acute pharyngitis, unspecified (principal); I10 Essential (primary) hypertension; Z91.013 Allergy to seafood; Z20.822 Contact with and (suspected) exposure to COVID-19
CPT/HCPCS: 71045; 72100; 81025; 96372; 99284; J1885; U0003

== ENCOUNTER 2021-02-21 21:56 | Emergency (ER) | payer MEDICAID ==
[~2021-02-21] VITALS: Ht 157.5 cm; Wt 96.6 kg
[2021-02-21 22:09] VITALS: BP 133/79
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
[2021-02-21] MEDS ORDERED: HYDROcodone/APAP 5/325 MG 1 TAB TAB PO ONE (22:55)
--- NOTE | 2021-02-21 23:52 | NUR ---
pt ambulatory to bed #9
--- NOTE | 2021-02-22 00:21 | NUR ---
ERMD AT BEDSIDE.
[2021-02-22] MEDS ORDERED: KETOROLAC 30 MG/ML VIAL IM ONE (00:25)
[2021-02-22] MEDS ORDERED: HYDROcodone/APAP 5/325 MG 1 TAB TAB ONE (00:34)
== END 2021-02-22 00:50 | disposition home or self-care (01) ==
LOC: MED 21:56
DX: M54.31 Sciatica, right side (principal); N64.4 Mastodynia; I10 Essential (primary) hypertension; Z91.013 Allergy to seafood; Z79.899 Other long term (current) drug therapy
CPT/HCPCS: 96372; 99283; J1885

== ENCOUNTER 2021-03-05 17:20 | Emergency (ER) | payer MEDICAID ==
[~2021-03-05] VITALS: Ht 160 cm; Wt 81.6 kg
[2021-03-05 17:20] VITALS: BP 107/53
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
--- NOTE | 2021-03-05 17:20 | NUR ---
Patient BIBA ALS, transferred to bed 6. Dr. Wilson and RN are evaluating the patient at bedside.
[2021-03-05] MEDS ORDERED: NACL 0.9% 1,000 ML IV ONE (17:25)
--- NOTE | 2021-03-05 17:30 | NUR ---
EMT at bedside for EKG.
--- NOTE | 2021-03-05 17:40 | NUR ---
Fidelia sutton in [facility] - 03/05/21 at 1743 by JC Silas sample, tri tavarez & lise, blood sample, handed to CPT Yanique.
--- NOTE | 2021-03-05 17:40 | NUR ---
Urine sample, tri tavarez & novel, blood sample, handed to CPT Yanique.
[2021-03-05 18:11] LABS: BASOPHILS # (AUTO) 0.1 K/uL (0.00-0.22); EOSINOPHILS # (AUTO) 0.2 K/uL (0-0.4); EOSINOPHILS % (AUTO) 2.6 % (0.0-4.0); HEMATOCRIT 38.2 % (36-48); HEMOGLOBIN 12.8 g/dL (12.0-16.0); LYMPHOCYTES # (AUTO) 2.9 K/uL (2.5-16.5); LYMPHOCYTES % (AUTO) 36.4 % (20.5-51.1); MEAN CORPUSCULAR HEMOGLOBIN 30 pg (27-31); MEAN CORPUSCULAR HGB CONC 33 g/dL (33-37); MEAN CORPUSCULAR VOLUME 90.6 fL (80-94); MONOCYTES # (AUTO) 0.5 K/uL (0.8-1.0); MONOCYTES % (AUTO) 6.6 % (1.7-9.3); NEUTROPHILS # (AUTO) 4.3 K/uL (1.8-7.7); NEUTROPHILS % (AUTO) 53.4 % (42.2-75.2); PLATELET COUNT (AUTO) 354 K/uL (140-450); RED BLOOD CELL COUNT(AUTO) 4.22 MIL/uL (4.20-5.40); RED CELL DISTRIBUTION WIDTH 18.9 % (11.6-13.7)
[2021-03-05 18:11] LABS: BARBITURATE, URINE NEGATIVE ng/ml (NEG <=200); BENZODIAZEPINE, URINE NEGATIVE ng/mL (NEG <=200); CANNABINOID, URINE NEGATIVE ng/mL (NEG <=50); COCAINE, URINE NEGATIVE ng/mL (NEG <=300); OPIATE, URINE NEGATIVE ng/mL (NEG <=2000); PHENCYCLIDINE SCREEN,URINE NEGATIVE ng/mL (NEG <=25)
[2021-03-05 18:25] LABS: ACETAMINOPHEN < 0.5 ug/ml (10-30); ALBUMIN 3.6 g/dL (3.4-5.0); ANION GAP 16.1 (8-16); ASPARTATE AMINOTRANSFERASE 143 U/L (15-37); CHLORIDE 104 mmol/L (98-107); CREATININE 0.8 mg/dL (0.6-1.3); GFR ARICAN-AMERICAN 99 mL/min (>90); GLUCOSE 136 mg/dL (74-106); POTASSIUM 3.1 mmol/L (3.5-5.1); SALICYLATE < 2.8 mg/dL (2.8-20.0); SODIUM SERUM 141 mmol/L (136-145); TOTAL BILIRUBIN 0.2 mg/dL (0.0-1.0); UREA NITROGEN, BLOOD 13 mg/dL (7-18)
--- NOTE | 2021-03-05 18:30 | NUR ---
patient combative, threatening staff and to leave facility. Dr. Wilson at bedside and made aware.
[2021-03-05] MEDS ORDERED: LORazepam 2 MG/ML VIAL IVP ONE (18:35)
[2021-03-05] MEDS ORDERED: HALOPERIDOL IM 5 MG/ML VIAL IM ONE (18:35)
--- NOTE | 2021-03-05 18:46 | NUR ---
CALLED ERIKA HENDRICKSON TO INFORM HIM OF PTS 5150 STATUS.
--- NOTE | 2021-03-05 19:17 | NUR ---
Report and transfer of care endorsed to STEVEN Petit.
--- NOTE | 2021-03-05 19:30 | NUR ---
Patient appears to be resting comfortably in bed. Vital Signs within normal limits. Respirations even and unlabored.
--- NOTE | 2021-03-05 23:00 | NUR ---
AWAKE, AMBULATED TO BR WITH STEADY GAIT, RETURNED TO BED, DIET TRAY SERVED
--- NOTE | 2021-03-06 04:25 | NUR ---
AWAKE, EATING SANDWICH
--- NOTE | 2021-03-06 05:43 | NUR ---
Patient appears to be resting comfortably in bed. Vital Signs within normal limits. Respirations even and unlabored.
--- NOTE | 2021-03-06 07:10 | NUR ---
Report and continuation of care received from STEVEN Petit.
--- NOTE | 2021-03-06 07:15 | NUR ---
Patient presents in semi-fowlers position in position of comfort. gambling monitor in place. Bed locked in lowest position, side rails x 2.
--- NOTE | 2021-03-06 08:19 | NUR ---
PT GIVEN BREAKFAST TRAY. PT EATING QUIETLY IN BED. PT STATING HER BREAST HURTS AND IS REQUESTING PAIN MEDS. DR ROMO MADE AWARE
[2021-03-06] MEDS ORDERED: MORPHINE SULFATE 4 MG/ML SYR IVP ONE (08:25)
--- NOTE | 2021-03-06 10:41 | NUR ---
DR BATES, PSYCHIATRY AT BEDSIDE EVALUATING PT
--- NOTE | 2021-03-06 11:25 | NUR ---
Cathy Brunson called and provided with status update on patient; line transferred to mobile phone currently on phone with patient at this time.
--- NOTE | 2021-03-06 11:35 | NUR ---
Patient awake on mobile phone laying on Right side in semi-fowlres position. campus monitor in place. Bed locked in lowest position, side rails x 1.
--- NOTE | 2021-03-06 11:45 | NUR ---
Patient completing lunch meal tray at this time. All needs met.
--- NOTE | 2021-03-06 12:15 | NUR ---
Pt completed 80% of lunch mealtray.
--- NOTE | 2021-03-06 13:30 | NUR ---
Lab at bedside for alcohol redraw
--- NOTE | 2021-03-06 14:07 | NUR ---
Patient presents both eyes closed laying on left side in semi-fowlers. form builder helper in place. Bed locked in lowest position, side rails x 2. VSS; respirations even/unlabored.
--- NOTE | 2021-03-06 15:59 | NUR ---
Patient states pain 7/10, provided with ice pack. All pt needs met at this time.
--- NOTE | 2021-03-06 16:58 | NUR ---
Patient states positive relief with ice pack. Replaced ice pack per pt request. All needs met.
--- NOTE | 2021-03-06 17:54 | NUR ---
IV site flushed with 10mL NS 0.9% with good blood return. No swelling, pain, coolness noted.
--- NOTE | 2021-03-06 18:23 | NUR ---
Patient awake sitting in high-fowlers completing meal at this time. insulation inspector remains in place. VSS. Bed locked in lowest position, side rails x 2 for pt safety.
--- NOTE | 2021-03-06 18:30 | NUR ---
Patient ambulated to restroom with steady even gait. Placed back onto cardiac sonographer.
--- NOTE | 2021-03-06 18:42 | NUR ---
Telepsychiatry consultation ordered as requested by Dr. Wilson.
--- NOTE | 2021-03-06 19:10 | NUR ---
Report and transfer of care endorsed to STEVEN Petit
[2021-03-06 19:20] VITALS: BP 145/96
--- NOTE | 2021-03-06 19:24 | NUR ---
resting comfortably with eyes open. is quiet and cooperative.
[2021-03-06] MEDS ORDERED: GABAPENTIN 300 MG CAP PO ONE (20:30)
[2021-03-06] MEDS ORDERED: [UNRECOGNIZED DRUG - CODE] PO (20:56)
[2021-03-06] MEDS ORDERED: ABI10 PO (20:56)
--- NOTE | 2021-03-06 21:31 | NUR ---
CALL TO PTS , ERIKA, REGARDING PTS DISCHARGE. NO ANSWER, MESSAGE LEFT
[2021-03-06] MEDS ORDERED: GABAPENTIN 300 MG CAP ONE (21:34)
--- NOTE | 2021-03-06 21:47 | NUR ---
Patient discharged with v/s stable. Written and verbal after care instructions given and explained. Patient alert, oriented and verbalized understanding of instructions. Ambulatory with steady gait. All questions addressed prior to discharge. ID band removed. Patient advised to follow up with PMD. Rx of ABILIFY, GABAPENTIN given. Patient educated on indication of medication including possible reaction and side effects. Opportunity to ask questions provided and answered.
[2021-03-07] MEDS ORDERED: ARIPiprazole 10 MG TAB PO SCH (09:00)
--- NOTE | 2021-03-07 20:37 | NUR ---
LATE NOTE- 0.9% NS BOLUS DISCONTINUED AT 1840
== END 2021-03-06 21:47 | disposition home or self-care (01) ==
LOC: MED 17:20
DX: F10.129 Alcohol abuse with intoxication, unspecified (principal); Z20.822 Contact with and (suspected) exposure to COVID-19; R45.851 Suicidal ideations; I10 Essential (primary) hypertension; F20.9 Schizophrenia, unspecified; Z91.013 Allergy to seafood; Z79.899 Other long term (current) drug therapy; Z85.3 Personal history of malignant neoplasm of breast
CPT/HCPCS: 36415; 80053; 80305; 81002; 81025; 85025; 87426; 93005; 96361; 96372; 96374; 96375; 99285; G0480; G0482; J1630; J2060; J2270; J7030; U0003

== ENCOUNTER 2021-03-13 12:21 | Emergency (ER) | payer MEDICAID, SELFPAY ==
[~2021-03-13] VITALS: Ht 167.6 cm; Wt 86.2 kg
[~2021-03-13 12:21] MED LIST changes: +ABI10 PO; +[UNRECOGNIZED DRUG - CODE] PO
[2021-03-13 12:35] VITALS: BP 134/70
--- NOTE | 2021-03-13 14:40 | NUR ---
46/F presents to ED with c/o right leg pain. Patient states this morning she slipped in the bath tub and has had right leg pain since. States 9/10 pain which worsens with movement or ambulation, patient able to ambulate without assistance, denies taking anything for pain prior to arrival to ED. Patient able to move extremities appropriately, equal sensation bilaterally, good ROM.
[2021-03-13] MEDS: KETOROLAC 30 MG/ML VIAL IM ONE (14:50)
[2021-03-13] MEDS ORDERED: LID5T TP (15:48)
[2021-03-13] MEDS ORDERED: PRED20TA5 PO (15:48)
[2021-03-13] MEDS ORDERED: CYCL-711 PO (15:48)
[2021-03-13] MEDS ORDERED: IBUP-2213 PO (15:48)
--- NOTE | 2021-03-13 16:01 | NUR ---
Patient discharged. Written and verbal after care instructions given and explained. Patient alert, oriented and verbalized understanding of instructions. Ambulatory with steady gait. All questions addressed prior to discharge. ID band removed. Patient advised to follow up with PMD. Rx of FLEXERIL, LIDODERM PATCH, PREDNISONE AND IBUPROFEN given. Patient educated on indication of medication including possible reaction and side effects. Opportunity to ask questions provided and answered.
== END 2021-03-13 16:01 | disposition home or self-care (01) ==
LOC: MED 12:21
DX: S76.011A Strain of muscle, fascia and tendon of right hip, initial encounter (principal); M54.31 Sciatica, right side; I10 Essential (primary) hypertension; Z85.3 Personal history of malignant neoplasm of breast; Z79.899 Other long term (current) drug therapy; Z91.013 Allergy to seafood; W18.2XXA Fall in (into) shower or empty bathtub, initial encounter; Y93.E1 Activity, personal bathing and showering; Y92.89 Other specified places as the place of occurrence of the external cause; Y99.8 Other external cause status
CPT/HCPCS: 72100; 73502; 96372; 99284; J1885

== ENCOUNTER 2021-05-10 15:52 | Emergency (ER) | payer MEDICAID, SELFPAY ==
[~2021-05-10] VITALS: Ht 167.6 cm; Wt 90.7 kg
[~2021-05-10 15:52] MED LIST changes: +CYCL-711 PO; +LID5T TP; +PRED20TA5 PO
[2021-05-10 15:57] VITALS: BP 129/68
[2021-05-10] MEDS ORDERED: KETOROLAC 30 MG/ML VIAL IM ONE (16:45)
--- NOTE | 2021-05-10 16:56 | NUR ---
46 Y/O F BIB SELF FROM HOME, C/O L BREAST PAIN, PT STATES SHE HAD 2CM OF MALIGNANT MASS IN L BREAST REMOVED ON March, PT STATES SINCE SURGERY, SHE HAS BEEN HAVING INCREASED PAIN IN AREA AND WOULD LIKE SECOND OPINION FROM MD. STATES SHE HAS RADIATION THERAPY ON 05/17/21. DENIES N/V/D; SKIN IS PINK/WARM/DRY; AAOX4 WITH EVEN AND STEADY GAIT; LUNGS CLEAR BL; HR EVEN AND REGULAR; PT DENIES ANY FEVER, CP, SOB, OR COUGH AT THIS TIME; PATIENT STATES PAIN OF 10/10 AT THIS TIME; VSS; PATIENT POSITIONED FOR COMFORT; HOB ELEVATED; BEDRAILS UP X2; BED DOWN. ER MD MADE AWARE OF PT STATUS. PMH: BREAST CANCER, HTN ALLERG: SHELLFISH
[2021-05-10] MEDS ORDERED: IBUP-2213 PO (17:53)
[2021-05-10] MEDS ORDERED: ACET-8386 PO (17:53)
[2021-05-10] MEDS ORDERED: LID5T TP (17:53)
[2021-05-10 18:05] VITALS: BP 129/68
--- NOTE | 2021-05-10 18:05 | NUR ---
Patient discharged with v/s stable. Written and verbal after care instructions given and explained. Patient alert, oriented and verbalized understanding of instructions. Ambulatory with steady gait. All questions addressed prior to discharge. ID band removed. Patient advised to follow up with PMD. Rx of LIDOCAINE, MOTRIN given. Patient educated on indication of medication including possible reaction and side effects. Opportunity to ask questions provided and answered.
== END 2021-05-10 18:05 | disposition home or self-care (01) ==
LOC: MED 15:52
DX: G89.29 Other chronic pain (principal); N64.4 Mastodynia; M54.40 Lumbago with sciatica, unspecified side; I10 Essential (primary) hypertension; Z79.899 Other long term (current) drug therapy; Z91.013 Allergy to seafood; Z85.3 Personal history of malignant neoplasm of breast
CPT/HCPCS: 81002; 81025; 96372; 99283; J1885

== ENCOUNTER 2021-10-15 23:40 | Emergency (ER) | payer MEDICAID ==
[~2021-10-15] VITALS: Ht 167.6 cm; Wt 92.1 kg
[~2021-10-15 23:40] MED LIST changes: +ACET-8386 PO
[2021-10-15 23:57] VITALS: BP 125/88
[2021-10-16] MEDS ORDERED: LORazepam 0.5 MG TAB PO ONE (00:15)
--- NOTE | 2021-10-16 00:20 | NUR ---
PT BIB FOR C/O OF SHORTNESS OF BREATH X1WEEK AND BACK PAIN. PATIENT ABLE TO AMBULATE TO BED AND CONNECTED TO MONITORS. PMH: HTN, SCHIZOPHRENIA, DEPRESSION, ADHD, L5 NERVE DAMAGE X 22 YEARS ALLERGY: SHELLFISH Addendum: 10/16/21 at 0213 by GUERO PMH: BREAST CANCER X1YEAR, RADIATION THERAPY SURGICAL HISTORY: BREAST CANCER REMOVAL MARCH 2021 MEDICATIONS CURRENTLY TAKING: TAMOXIFEN
[2021-10-16 00:52] LABS: BASOPHILS # (AUTO) 0.1 K/uL (0.00-0.22); BASOPHILS % (AUTO) 0.7 % (0.0-2.0); EOSINOPHILS # (AUTO) 0.2 K/uL (0-0.4); EOSINOPHILS % (AUTO) 1.8 % (0.0-4.0); HEMATOCRIT 32.9 % (36-48); HEMOGLOBIN 11.4 g/dL (12.0-16.0); LYMPHOCYTES # (AUTO) 1.9 K/uL (2.5-16.5); LYMPHOCYTES % (AUTO) 16.6 % (20.5-51.1); MEAN CORPUSCULAR HEMOGLOBIN 35 pg (27-31); MEAN CORPUSCULAR HGB CONC 35 g/dL (33-37); MEAN CORPUSCULAR VOLUME 102.3 fL (80-94); MONOCYTES # (AUTO) 0.9 K/uL (0.8-1.0); MONOCYTES % (AUTO) 7.9 % (1.7-9.3); NEUTROPHILS # (AUTO) 8.4 K/uL (1.8-7.7); PLATELET COUNT (AUTO) 331 K/uL (140-450); RED BLOOD CELL COUNT(AUTO) 3.22 MIL/uL (4.20-5.40); RED CELL DISTRIBUTION WIDTH 14.6 % (11.6-13.7); WHITE BLOOD COUNT (AUTO) 11.5 K/uL (4.8-10.8)
[2021-10-16 01:09] LABS: ALBUMIN 3.3 g/dL (3.4-5.0); ANION GAP 12.4 (8-16); CARBON DIOXIDE 24.5 mmol/L (21-32); TOTAL BILIRUBIN 0.8 mg/dL (0.0-1.0)
[2021-10-16 01:19] LABS: POTASSIUM 2.9 mmol/L (3.5-5.1)
--- NOTE | 2021-10-16 01:19 | NUR ---
CRITICAL LAB RECEIVED. POTASSIUM 2.9. DR. ROSALES MADE AWARE.
[2021-10-16] MEDS ORDERED: POTASSIUM CHLORIDE 10 MEQ TABER PO ONE (01:25)
[2021-10-16] MEDS ORDERED: LORazepam 0.5 MG TAB ONE (01:26)
[2021-10-16] MEDS ORDERED: CYCLOBENZAPRINE 10 MG TAB PO ONE (02:15)
--- NOTE | 2021-10-16 02:35 | NUR ---
DR. VINCENT AT BEDSIDE.
[2021-10-16 03:35] VITALS: BP 134/79
== END 2021-10-16 03:35 | disposition home or self-care (01) ==
LOC: MED 23:40
DX: F41.9 Anxiety disorder, unspecified (principal); R06.02 Shortness of breath; I10 Essential (primary) hypertension; F32.9 Major depressive disorder, single episode, unspecified; Z91.013 Allergy to seafood; Z85.3 Personal history of malignant neoplasm of breast
CPT/HCPCS: 36415; 71045; 80053; 83880; 84484; 85025; 85379; 93005; 99285; Q0092

== ENCOUNTER 2021-11-09 21:18 | Emergency (ER) | payer MEDICAID ==
[~2021-11-09] VITALS: Ht 167.6 cm; Wt 81.6 kg
[2021-11-09 21:39] VITALS: BP 125/75
[2021-11-10] MEDS ORDERED: ERYT5OIN51 OP (01:21)
[2021-11-10 01:30] VITALS: BP 120/76
== END 2021-11-10 01:30 | disposition home or self-care (01) ==
LOC: MED 21:18
DX: H57.10 Ocular pain, unspecified eye (principal); I10 Essential (primary) hypertension; F20.9 Schizophrenia, unspecified; F32.9 Major depressive disorder, single episode, unspecified; F90.9 Attention-deficit hyperactivity disorder, unspecified type; Z85.3 Personal history of malignant neoplasm of breast; Z91.013 Allergy to seafood; Z79.899 Other long term (current) drug therapy
CPT/HCPCS: 99283

== ENCOUNTER 2022-01-02 16:20 | Emergency (ER) | payer MEDICAID ==
[~2022-01-02] VITALS: Ht 165.1 cm; Wt 96.3 kg
[~2022-01-02 16:20] MED LIST changes: +ERYT5OIN51 OP
[2022-01-02 16:45] VITALS: BP 131/77
[2022-01-02] MEDS ORDERED: KETOROLAC 60 MG/2 ML VIAL IM ONE (17:10)
--- NOTE | 2022-01-02 17:10 | NUR ---
46/F PRESENTS TO ED WITH C/O LEFT BREAST PAIN X2 WEEKS. PATIENT REPORTS HX OF BREAST CANCER TO LEFT BREAST, STATES RECEIVING RADIATION. PATIENT REPORTS SHE HAS BEEN TAKING MOTRIN WITH NO RELIEF. DENIES TRAUMA, INJURY, FEVER, CHILLS, N/V/D.
[2022-01-02] MEDS ORDERED: ACET-8386 PO (17:18)
[2022-01-02] MEDS ORDERED: IBUP-2213 PO (17:18)
[2022-01-02 17:36] VITALS: BP 135/58
--- NOTE | 2022-01-02 17:36 | NUR ---
Patient discharged with v/s stable. Written and verbal after care instructions ABOUT BREAST CYST given and explained. Patient alert, oriented and verbalized understanding of instructions. Ambulatory with steady gait. All questions addressed prior to discharge. ID band removed. Patient advised to follow up with PMD. Rx of NORCO 5-325, IBUPROFEN given. Patient educated on indication of medication including possible reaction and side effects. Opportunity to ask questions provided and answered.
== END 2022-01-02 17:36 | disposition home or self-care (01) ==
LOC: MED 16:20
DX: N64.4 Mastodynia (principal); I10 Essential (primary) hypertension; Z98.890 Other specified postprocedural states; Z79.2 Long term (current) use of antibiotics; Z79.899 Other long term (current) drug therapy; Z79.891 Long term (current) use of opiate analgesic; Z91.013 Allergy to seafood
CPT/HCPCS: 96372; 99283; J1885

== ENCOUNTER 2022-01-28 12:55 | Emergency (ER) | payer MEDICAID ==
[~2022-01-28] VITALS: Ht 162.6 cm; Wt 90.7 kg
[2022-01-28 13:30] VITALS: BP 115/77
--- NOTE | 2022-01-28 13:30 | NUR ---
PT REPORTS SI AND IS CRYING. PT TAKEN TO ER BED 7. SI PRECAUTIONS IN PLACE.
--- NOTE | 2022-01-28 13:33 | NUR ---
46YO FEMALE PT BIBA FROM HOME. UPON ARRIVAL PT WAS CRYING , MILD SLURRING IN WORDS , FLUSHED SKIN, STEADY GAIT . PT WAS STATING SHE WAS FEELING "DEPRESSED AND STRESSED" PT C/O DIZZINESS AND HEADACHE. PRIOR ARRIVAL PT STATES DRINKING HALF PINT OF VODKA . PT PRESENTS WITH NO VISIBLE INJURIES AND MILD CONFUSION, WILL TALK OUT LOUD ABOUT RANDOM SUBJECTS. HX; DEPRESSION ALLERGIES: SHELLFISH
--- NOTE | 2022-01-28 13:45 | NUR ---
PT SWABBED FOR COVID(JOJO) . HANDED TO LAB
--- NOTE | 2022-01-28 14:00 | NUR ---
PT BELONGINGS GIVEN TO SECURITY
--- NOTE | 2022-01-28 14:11 | NUR ---
DR DUARTE AT BEDSIDE EVALUATING PT
[2022-01-28] MEDS ORDERED: KETOROLAC 30 MG/ML VIAL IM ONE (14:20)
[2022-01-28 16:03] VITALS: BP 115/77
--- NOTE | 2022-01-28 16:04 | NUR ---
The patient's care was reviewed and supervised by Vani Mccarthy RN.
== END 2022-01-28 16:03 | disposition home or self-care (01) ==
LOC: MED 12:55
DX: F10.129 Alcohol abuse with intoxication, unspecified (principal); Y90.0 Blood alcohol level of less than 20 mg/100 ml; M54.30 Sciatica, unspecified side; I10 Essential (primary) hypertension; Z98.890 Other specified postprocedural states; Z91.013 Allergy to seafood
CPT/HCPCS: 81002; 81025; 96372; 99283; J1885

== ENCOUNTER 2022-02-13 19:48 | Emergency (ER) | payer MEDICAID ==
[~2022-02-13] VITALS: Ht 165.1 cm; Wt 81.6 kg
[~2022-02-13 19:48] MED LIST changes: -ABI10 PO; -ACET-8386 PO; -BUS5 PO; -CYCL-711 PO; -DIVA250E1 PO; -ERYT5OIN51 OP; -LID5T TP; -PRED20TA5 PO; -RISP0.5T3 PO; -TRAZ-343 PO; -[UNRECOGNIZED DRUG - CODE] PO
[2022-02-13 19:51] VITALS: BP 118/72
--- NOTE | 2022-02-13 19:51 | NUR ---
PT OFFLOADED TO LOBBY IN W/C WITH SEAT BELT PLACED.
[2022-02-13 20:25] LABS: BASOPHILS # (AUTO) 0.1 K/uL (0.00-0.22); BASOPHILS % (AUTO) 0.6 % (0.0-2.0); EOSINOPHILS # (AUTO) 0.1 K/uL (0-0.4); EOSINOPHILS % (AUTO) 1.3 % (0.0-4.0); HEMOGLOBIN 12.8 g/dL (12.0-16.0); LYMPHOCYTES # (AUTO) 1.8 K/uL (2.5-16.5); LYMPHOCYTES % (AUTO) 19.1 % (20.5-51.1); MEAN CORPUSCULAR HEMOGLOBIN 34 pg (27-31); MEAN CORPUSCULAR HGB CONC 35 g/dL (33-37); MEAN CORPUSCULAR VOLUME 99.3 fL (80-94); MONOCYTES # (AUTO) 0.6 K/uL (0.8-1.0); MONOCYTES % (AUTO) 6.7 % (1.7-9.3); NEUTROPHILS # (AUTO) 6.8 K/uL (1.8-7.7); NEUTROPHILS % (AUTO) 72.3 % (42.2-75.2); PLATELET COUNT (AUTO) 281 K/uL (140-450); RED BLOOD CELL COUNT(AUTO) 3.72 MIL/uL (4.20-5.40); RED CELL DISTRIBUTION WIDTH 14.2 % (11.6-13.7); WHITE BLOOD COUNT (AUTO) 9.5 K/uL (4.8-10.8)
[2022-02-13 20:40] LABS: ANION GAP 16.7 (8-16); CARBON DIOXIDE 19.9 mmol/L (21-32); CREATININE 0.7 mg/dL (0.6-1.3); TOTAL BILIRUBIN 0.3 mg/dL (0.0-1.0)
[2022-02-13 20:44] LABS: POTASSIUM 2.6 mmol/L (3.5-5.1)
--- NOTE | 2022-02-14 01:02 | NUR ---
Called first time by MD, no show in lobby or outside.
[2022-02-14 01:31] LABS: MAGNESIUM 1.7 mg/dL (1.8-2.4); PHOSPHORUS 2.8 mg/dL (2.5-4.9)
--- NOTE | 2022-02-14 01:32 | NUR ---
Called second time- no show in lobby or outside.
--- NOTE | 2022-02-14 02:01 | NUR ---
PATIENT LEFT WITHOUT BEING SEEN BY DR. Mullins. NO FURTHER CARE PROVIDED FOR PATIENT.
--- NOTE | 2022-02-14 02:01 | NUR ---
Called third time- no show in lobby or outside.
== END 2022-02-14 02:01 | disposition left against medical advice (07) ==
LOC: MED 19:48
DX: R51.9 Headache, unspecified (principal); Z53.21 Procedure and treatment not carried out due to patient leaving prior to being seen by health care provider
CPT/HCPCS: 36415; 80053; 83690; 83735; 84100; 85025

== ENCOUNTER 2022-04-09 10:26 | Emergency (ER) | payer MEDICAID ==
[~2022-04-09] VITALS: Ht 167.6 cm; Wt 92.1 kg
[2022-04-09 10:38] VITALS: BP 133/71
--- NOTE | 2022-04-09 12:15 | NUR ---
NO ANSWER WHEN CALLED [facility]
--- NOTE | 2022-04-09 13:07 | NUR ---
3RD NO ANSER WHEN CALLED BY CARLOS EDUARDO ROSALES
--- NOTE | 2022-04-09 13:08 | NUR ---
PATIENT LEFT WITHOUT BEING SEEN BY DR. CROWLEY. NO FURTHER CARE PROVIDED FOR PATIENT.
== END 2022-04-09 12:15 | disposition left against medical advice (07) ==
LOC: MED 10:26
DX: M54.9 Dorsalgia, unspecified (principal); M79.601 Pain in right arm; Z53.21 Procedure and treatment not carried out due to patient leaving prior to being seen by health care provider

== ENCOUNTER 2024-01-18 16:40 | Emergency (ER) | payer MEDICAID ==
[~2024-01-18] VITALS: Ht 165.1 cm; Wt 113.4 kg
[2024-01-18 17:17] VITALS: BP 140/95; PULSE 123; RESP 18; TEMP 98.1; O2SAT 96
[2024-01-18] MEDS: KETOROLAC 60 MG/2 ML VIAL IM ONE (20:17)
[2024-01-18] MEDS: HYDROcodone/APAP 5/325 MG 1 TAB TAB PO ONE (20:18)
[2024-01-18] MEDS ORDERED: METH-1681 PO (20:54)
[2024-01-18] MEDS ORDERED: LID5T TP (20:54)
[2024-01-18] MEDS ORDERED: IBUP-2213 PO (20:54)
== END 2024-01-18 21:01 | disposition home or self-care (01) ==
LOC: MED 16:40
DX: S46.811A Strain of other muscles, fascia and tendons at shoulder and upper arm level, right arm, initial encounter (principal); S50.01XA Contusion of right elbow, initial encounter; I10 Essential (primary) hypertension; Z85.3 Personal history of malignant neoplasm of breast; Z91.013 Allergy to seafood; W18.30XA Fall on same level, unspecified, initial encounter; Y93.89 Activity, other specified; Y92.89 Other specified places as the place of occurrence of the external cause; Y99.8 Other external cause status
CPT/HCPCS: 73030; 73080; 96372; 99284; J1885